=== PATIENT | male | born 2005 | race Caucasian/White ===

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

== ENCOUNTER → 2023-01-13 08:48 | Outpatient (REF) | payer OTHER, SELFPAY ==
--- NOTE | 2023-01-13 08:54 | CA_ITS ---
Transthoracic Echocardiogram Patient (Last, First, Middle): Jarred José, Gender: Male Date of : 2005 Age: 17 Procedure Date: 01/13/2023 Procedure Type: Transthoracic Echocardiogram Location: OP Height: 187.96 cm Weight: 72.58 kg BSA: 1.98 m2 Heart Rate: 82 bpm BP: 122 / 78 mmHg Psychological Anthropologist: SB Referring MD: Florian Fleming MD Symptoms: R07.9 - Chest pain, unspecified Study Quality: Adequate ECG Rhythm: Sinus Conclusions: - The left ventricular systolic function is normal. The calculated ejection fraction is 59% by biplane method. - No obvious valvular pathology seen on this study. Findings Left Ventricle Normal left ventricular cavity size. There is normal left ventricular wall thickness. The left ventricular systolic function is normal. The calculated ejection fraction is 59% by biplane method. There is no evidence of regional wall motion abnormalities. Diastolic function is normal for age. Right Ventricle Normal right ventricular cavity size and systolic function. Atria Both atria are normal in size. Aortic Valve There is a normal trileaflet aortic valve. There is no aortic valve stenosis. There is no aortic valve regurgitation. Mitral Valve The mitral valve appears normal. There is no mitral valve regurgitation. There is no mitral valve stenosis. Pulmonic Valve The pulmonic valve is likely normal. Tricuspid Valve Normal tricuspid valve structure. There is trace tricuspid valve regurgitation. There is no evidence of pulmonary hypertension. Great Vessels The asc aorta is normal in size. Venous The inferior vena cava is normal in size and collapses less than 50% with inspiration. Pericardium/Pleural There is no evidence of pericardial effusion. Prior Study Comparison No prior study available for comparison. Recommendations, Care & Conclusions No obvious valvular pathology seen on this study. Measurements 2D Linear Measurements IVSd: 0.89 0.6-0.9/0.6-1.0 cm LVIDd: 5.50 3.9-5.3/4.2-5.9 cm LVIDd Index: 2.78 2.4-3.2/2.2-3.1 cm/m2 LVIDs: 3.64 2.0-3.6 cm LVPWd: 0.73 0.7-1.1 cm LA Diam: 2.90 2.7-3.8/3.0-4.0 cm LAIDs Index: 1.46 1.5-2.3 cm/m2 LV Mass: 202.35 67-162/88-224 g LV Mass Index: 102.20 43-95/49-115 g/m2 LVOT Diam: 2.50 3.0+(-)1.3 cm 2D Systolic Function EF 4C: 62.20 >55% EF 2C: 57.90 >55% EF BiP: 59.20 >55% Mitral Valve MV Pk E: 0.91 MV PK A: 0.48 MV Decel Time: 118.00 E/A: 1.90 E'Lateral: 15.60 E'Medial: 10.60 E/E' Med: 8.60 E/E' Lat: 5.90 PHT: 35.00 MVA PHT: 6.29 Decel Miller: 7.74 Aortic Valve AoV Pk Viral: 1.09 AoV Pk Grad: 5.00 MARICHUY: 3.32 LVOT LVOT Pk Viral: 0.79 LVOT Mn Viral: 0.45 LVOT VTI: 0.13 LVOT Pk Grad: 3.00 LVOT Mn Grad: 1.00 LVOT Diam: 2.50 LVOT Area: 4.91 Diastolic Function MV Pk E: 0.91 MV Pk A: 0.48 E/A: 1.90 E'Medial: 10.60 E/E' Med: 8.60 E' Laterial: 15.60 E/E' Lat: 5.90 Right Ventricle TAPSE (mm): 24.00 TVS' Viral: 17.50 Tricuspid Valve TR Pk Viral: 1.76 TR Pk Grad: 12.00 RA Press: 8.00 RVSP: 20.00 Great Vessels Aorta Sinus of Valsalva: 3.30 2.0-3.5 cm Ao Asc: 2.70 2.1-3.4 cm Pulmonary Valve PV Pk Viral: 0.85 Peak PV Grad: 3.00 Updated in Other Vendor System with Status of Final Kamar Rebolledo MD electronically signed on 01/13/2023 10:23:50 AM with status of Final
== END ==
LOC: HO.CARD 08:48
PROVIDERS: PCP Family Medicine; Visit Provider Family Medicine
DX: R07.9 Chest pain, unspecified (principal); R01.1 Cardiac murmur, unspecified
CPT/HCPCS: 93306

== ENCOUNTER 2023-06-25 13:01 | Outpatient (REF) | payer OTHER, SELFPAY ==
--- NOTE | 2023-06-25 13:04 | EEG_ITS ---
This is a 16-channel EEG with an EKG lead. The patient is reported awake during the tracing. Background EEG rhythm is about 10 to 12 hertz 5 to 20 microvolt posteriorly with low amplitude fast anteriorly. Photic stimulation does not produce any significant driving. Hyperventilation is not performed. Cardiac lead does not reveal any significant abnormality. No sharp wave spikes or paroxysmal tendency noted. IMPRESSION: Unremarkable EEG. MD OLINDA Nieves/JAMEE / [id number]
== END 2023-06-25 13:02 | disposition home or self-care (01) ==
LOC: HO.NEURO 13:01
PROVIDERS: PCP Family Medicine; Visit Provider Nurse Practitioner Family
DX: R56.9 Unspecified convulsions (principal)
CPT/HCPCS: 95816

== ENCOUNTER 2024-03-01 09:37 | Outpatient (AMB) | payer OTHER, SELFPAY ==
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
[2024-03-01 09:40] VITALS: BP 118/64; PULSE 89; RESP 13; TEMP 36.6; O2SAT 99; BMI 23.1
== END 2024-03-01 10:34 | disposition home or self-care (01) ==
PROVIDERS: PCP Family Medicine; Visit Provider Nurse Practitioner Family
DX: Z09 Encounter for follow-up examination after completed treatment for conditions other than malignant neoplasm (principal)
CPT/HCPCS: 99214